=== PATIENT | female | born 1985 | race Caucasian/White ===

== ENCOUNTER 2016-07-26 18:11 | Emergency (ER) | payer MEDICAID ==
[~2016-07-26] VITALS: Ht 160 cm; Wt 49.2 kg
[~2016-07-26 18:11] MED LIST: BUPR1FIL3 SL; CLON0.1T PO
[2016-07-26] MEDS ORDERED: LORazepam 1MG TABLET ONE (18:58)
[2016-07-26] MEDS ORDERED: LORazepam 1MG TABLET PO ONE (19:00)
[2016-07-26] MEDS ORDERED: DIAZEPAM 5 MG/ML, 2ML ONE (20:21)
[2016-07-26] MEDS ORDERED: SODIUM CHLORIDE 0.9% 1,000ML IVBOLUS ONE (20:30)
[2016-07-26] MEDS ORDERED: DIAZEPAM 5 MG/ML, 2ML IV ONE ×2 (20:30→22:00)
[2016-07-26 21:36] VITALS: BP 123/62
== END 2016-07-26 22:17 | disposition home or self-care (01) ==
LOC: ED 22:02
DX: F41.9 Anxiety disorder, unspecified (principal); I10 Essential (primary) hypertension
CPT/HCPCS: 93005; 96361; 96374; 96376; 99284; J3360; J7030

== ENCOUNTER 2016-07-30 15:30 | Emergency (ER) | payer MEDICAID ==
[2016-07-30 15:39] VITALS: BP 150/105
[2016-07-30] MEDS ORDERED: DIAZ5TAB PO (16:27)
[2016-07-30 16:31] LABS: BLOOD UREA NITROGEN 12 mg/dL (7-18)
== END 2016-07-30 17:16 | disposition home or self-care (01) ==
LOC: ED 17:12
DX: F41.1 Generalized anxiety disorder (principal); R06.4 Hyperventilation; I10 Essential (primary) hypertension
CPT/HCPCS: 36415; 71020; 80048; 82040; 84703; 85025; 93005; 99285